=== PATIENT | male | born 1980 | race African-American/Black ===

== ENCOUNTER 2019-05-25 06:25 | Emergency (ER) | payer BC ==
[~2019-05-25] VITALS: Ht 177.8 cm; Wt 83.9 kg
[2019-05-25 06:30] VITALS: BP 141/68; Ht 177.8 cm; Wt 83.9 kg
[2019-05-25] MEDS ORDERED: NOVOLIN 70/30 110 ML SC (06:34)
[2019-05-25] MEDS ORDERED: NOVOLIN 70/30 110 ML SQ (06:34)
[2019-05-25 07:12] LABS: ALBUMIN 3.7 g/dL (3.4-5.0); ALKALINE PHOSPHATASE 141 U/L (46-116); ALT (SGPT) 58 U/L (10-68); BILIRUBIN - TOTAL 1.17 mg/dL (0.2-1.3); CARBON DIOXIDE 21.1 mmol/L (21.0-32.0); CHLORIDE - SERUM 96 mmol/L (98-107); CREATININE - SERUM 1.2 mg/dL (0.6-1.3); KETONE - SERUM SMALL mg/dL (NEGATIVE); MAGNESIUM - SERUM 2.1 mg/dL (1.8-2.4); SODIUM 133 mmol/L (136-145); UREA NITROGEN 18 mg/dL (7-18); eGFR NON AFRICAN AMERICAN 72 mL/min (90-120)
[2019-05-25 07:19] LABS: CALC OSMOLALITY 290 mosm/kg (275-300)
[2019-05-25 07:21] LABS: GLUCOSE 516 mg/dL (74-106)
[2019-05-25 07:29] LABS: APPEARANCE CLEAR (CLEAR); BILIRUBIN NEGATIVE (NEGATIVE); COLOR YELLOW (YELLOW); GLUCOSE 1000 mg/dL (NEGATIVE); KETONE LARGE mg/dL (NEGATIVE); NITRITE NEGATIVE (NEGATIVE); PROTEIN NEGATIVE (NEGATIVE); SPECIFIC GRAVITY 1.015 (1.005-1.020); UROBILINOGEN NORMAL (NORMAL)
[2019-05-25 07:33] LABS: BASOPHILS 0.6 % (0-2); EOSINOPHILS 4.2 % (0-7); HEMATOCRIT 39.5 % (42.0-54.0); HEMOGLOBIN 13.3 g/dL (13.5-17.5); IMMATURE GRANULOCYTES 0.2 % (0-5); LYMPHOCYTES 28.5 % (15-50); MCH 30.2 pg (26.0-34.0); MCHC 33.7 g/dL (31.0-37.0); MCV 89.6 fL (80.0-100.0); MEAN PLATELET VOLUME 10.3 fL (7.4-10.4); MONOCYTES 12.1 % (2-11); NEUTROPHILS 54.4 % (40-80); RBC 4.41 10x6/uL (4.20-6.10); RDW 15.3 % (11.5-14.5); WBC 4.8 10x3/uL (4.8-10.8)
[2019-05-25 07:34] LABS: PLATELET COUNT 149 10x3/uL (130-400)
== END 2019-05-25 07:58 | disposition left against medical advice (07) ==
LOC: D.ER 06:25
PROVIDERS: Family Medicine
DX: E11.65 Type 2 diabetes mellitus with hyperglycemia (principal)